=== PATIENT | female | born 1990 | race Caucasian/White ===

== ENCOUNTER → 2016-11-28 | Day surgery (SDC) | payer MEDICARE, MEDICAID ==
[~2016-11-28] VITALS: Ht 157.5 cm; Wt 83.8 kg
[~2016-11-28] MED LIST: FLONASE 50 MCG/16 GM NOSE; LEVOTHROID (SY50 MCG PO; MULTIVITAMINS1 EACH PO; NORTREL 1-35 T1 EACH PO; PAXIL30 MG PO; SINGULAIR10 MG PO; SUPER B COMPLE1 EAC1 PO; TYLENOL325 MG PO; XANAX0.25 MG PO; ZYRTEC10 MG PO
--- NOTE | ~2016-11-28 | OR ---
PATIENT'S NAME: TYSHAWN NARANJO [facility] AGE: 26 Y [address] ROOM: [place] [id number] LOCATION: [facility] [place] DATE: 11/28/2016 OR/Procedure Report DISCHARGE DATE: FAMILY PHYSICIAN: Ariadne Cervantes MD ATTENDING PHYSICIAN: Shea Edwards SURGEON: Shea Edwards DDS [employer]: I was assisted by Yamila Palacios. DATE OF PROCEDURE: 11/28/2016 Corrected procedure per provider 12/11/16 AO PREOPERATIVE DIAGNOSIS: Repair of carious lesions with or without extractions. POSTOPERATIVE DIAGNOSIS: Carious lesions repaired without extraction. NAME OF OPERATIVE: Repair of carious lesions with or without extractions. INDICATIONS: The patient arrived at outpatient in good health and n.p.o. The patient has abscessed tooth and other decayed and she is mentally challenged and cannot cooperate for restorations in the office. There was a presurgical consultation with her parents and all questions were answered. The patient was taken to the OR. In the supine position, the patient was prepped and draped in the usual manner. The patient was nasally intubated and administered general anesthesia. An IV was placed prior to the intubation. A throat pack was then placed and an IsoDry to occlude the pharynx and as mouth prop. An oral exam four bitewings, two occlusal radiographs and an adult prophy were completed. The oral rehabilitation was as follows, #22 root canal with composite resin strip crown #1. #23 composite resin strip crown #1 #26 facial composite. #29 distal occlusal amalgam. All composite crowns are 3M ALBERTO Filtek A2 body and were etched and bonded with 3M ALBERTO Scotchbond. The amalgam is a Clarke contour amalgam with Copalite cavity varnish. The root canal was filed with K files to 23 mm in length and a 25 file. The canal was tapered using the rotary instrument and was rinsed with Peridex and dried with paper points. Sybron Tubli-Seal was placed into the canal and the canal was filled with #25 Thermafil ricardo-percha at 23 mm in length. The mouth was then rinsed and the throat pack and IsoDry were removed. 3M ALBERTO Vanish 5% sodium fluoride varnish was applied to all dentition. Blood loss was minimal. The patient tolerated the procedure well and was transferred to [facility] in good and stable condition. There was a postop consultation with the parents and all questions were answered. SHEA EDWARDS DDS PATIENT'S NAME: TYSHAWN NARANJO [facility] AGE: 26 Y [address] ROOM: [place] [id number] LOCATION: [facility] [place]MIT DATE: 11/28/2016 OR/Procedure Report DISCHARGE DATE: FAMILY PHYSICIAN: Ariadne Cervantes MD ATTENDING PHYSICIAN: Shea Edwards/rubén /[id number] Corrected procedure per provider 12/11/16 AO d: 11/28/16 1526 t: 12/17/16 0814, OPERATIVE SUMMARY
== END | disposition disaster alternative care site (69) ==
LOC: GPOC 11-10 14:00 → GSDC 11-21 07:00
PROC: 0CRXXJ1 Replacement of Lower Tooth, Multiple, with Synthetic Substitute, External Approach (ICD-10-PCS; principal; 2016-11-28)
DX: K02.9 Dental caries, unspecified (principal); F32.9 Major depressive disorder, single episode, unspecified; F41.1 Generalized anxiety disorder; E03.9 Hypothyroidism, unspecified; Q90.9 Down syndrome, unspecified; Z88.5 Allergy status to narcotic agent; Z79.899 Other long term (current) drug therapy; Z98.890 Other specified postprocedural states
CPT/HCPCS: J2250; J7030